=== PATIENT | male | born 1945 | race Caucasian/White ===

== ENCOUNTER 2020-11-10 11:59 | Day surgery (SDC) | payer OTHER ==
[2020-11-03 12:09] LABS: BASOPHILS # (AUTO) 0.1 X10'3 (0-0.2); BASOPHILS % (AUTO) 0.6 % (0-1); EOSINOPHILS # (AUTO) 0.1 X10'3 (0-0.9); EOSINOPHILS % (AUTO) 0.6 % (0-6); LYMPHOCYTES # (AUTO) 2.2 X10'3 (1.1-4.8); LYMPHOCYTES % (AUTO) 21.1 % (21-51); MEAN CORPUSCULAR HEMOGLOBIN 30.8 PG (27.0-31.0); MEAN CORPUSCULAR HGB CONC 33.4 g/dL (33.0-36.5); MEAN CORPUSCULAR VOLUME 92.1 FL (78-98); MEAN PLATELET VOLUME 7.6 FL (7.4-10.4); MONOCYTES # (AUTO) 0.6 X10'3 (0-0.9); MONOCYTES % (AUTO) 6.1 % (2-12); NEUTROPHILS # (AUTO) 7.4 X10'3 (1.8-7.7); NEUTROPHILS % (AUTO) 71.6 % (42-75); PRE OP HEMATOCRIT 45.1 % (42.0-52.0); PRE OP HEMOGLOBIN 15.1 g/dL (14.0-17.9); PRE OP PLATELET COUNT 251 X10'3 (140-440); RED CELL DISTRIBUTION WIDTH 13.7 % (11.5-14.5)
[2020-11-03 12:18] LABS: ALBUMIN 3.9 G/DL (3.4-5.0); ALKALINE PHOSPHATASE 72 IU/L (46-116); CALCIUM 9.1 MG/DL (8.5-10.1); CHLORIDE 104 MMOL/L (99-107); PRE OP ALT 21 U/L (30-65); PRE OP ANION GAP 12 (8-16); PRE OP AST 13 U/L (10-37); PRE OP BILIRUB, TOTAL 0.6 MG/DL (0.0-1.0); PRE OP GLUCOSE 113 MG/DL (70-104); PRE OP POTASSIUM 4.4 MMOL/L (3.4-5.1); PRE OP SODIUM 143 MMOL/L (135-145); TOTAL CARBON DIOXIDE 27.2 MMOL/L (24-32); TOTAL PROTEIN 7.9 G/DL (6.4-8.2)
[2020-11-03 12:28] LABS: BLOOD UREA NITROGEN 5 MG/DL (7-18); BUN/CREATININE RATIO 5.7 (5.4-32.0); CREATININE 0.88 MG/DL (0.60-1.10); eGFR 85 ML/MIN
[~2020-11-10] VITALS: Ht 182.9 cm; Wt 77.0 kg
[2020-11-10] VITALS (15 sets, daily range): BP systolic 105–132; BP diastolic 55–83
[~2020-11-10 11:59] MED LIST: FLO0.4C PO; MULT-1085 PO; OMEP20CA15 PO; TRAZ-251 PO; cefazolin/dext.iso 2gm/100ml IV ONE; famotidine 20mg tablet PO ONE; ringers solution, lacted 1,000 ML IV SCH
[2020-11-10] MEDS ORDERED: meperidine/PF 25mg/ml syringe IV PRN ×3 (14:00)
[2020-11-10] MEDS ORDERED: morphine 2 MG/ML inj. syringe IV PRN (14:00)
[2020-11-10] MEDS ORDERED: ondansetron/PF 4mg/2ml inj IV PRN (14:00)
[2020-11-10] MEDS ORDERED: ringers solution, lacted 1,000 ML IV SCH (14:00)
[2020-11-10] MEDS ORDERED: morphine 4 MG/ML inj SYRINge IV PRN (14:00)
[2020-11-10] MEDS ORDERED: proCHLORperazine 10 MG/2 ml inj IV PRN (14:00)
[2020-11-10] MEDS ORDERED: BUPIVAcaine/PF 2.5mg/ml (0.25%) 10ml vial ONE (15:24)
[2020-11-10] MEDS ORDERED: LIDOcaine 1% 30ml preserv. free vial ONE (15:24)
[2020-11-10] MEDS ORDERED: dexamethasone sod phosphate 10mg/ml inj ONE (15:30)
[2020-11-10] MEDS ORDERED: neostigmine methylsulfate 1 MG/ML 10ml vial ONE (15:30)
[2020-11-10] MEDS ORDERED: glycopyrrolate 0.2mg/ml inj ONE (15:30)
[2020-11-10] MEDS ORDERED: sevoflurane 250ml liquid IH ONE (15:30)
[2020-11-10] MEDS ORDERED: propofol inj 20 ML IV ONE (15:40)
[2020-11-10] MEDS ORDERED: rocuronium 10mg/ml inj IV ONE (15:40)
[2020-11-10] MEDS ORDERED: LIDOcaine 2% (20mg/ml) 5ml vial ONE (15:40)
[2020-11-10] MEDS ORDERED: fentaNYL /PF 50mcg/ml 5ml ampule ONE (15:40)
[2020-11-10] MEDS ORDERED: midazolam 1 mg/ML 2ml injection ONE (15:40)
[2020-11-10] MEDS ORDERED: ondansetron/PF 4mg/2ml inj ONE (15:51)
[2020-11-10] MEDS ORDERED: acetaminophen 1,000mg/100ml IV 100 ML IV ONE (17:07)
[2020-11-10] MEDS ORDERED: HYDROcodone/acetaminophen 5mg/325mg tablet PO PRN ×2 (17:10)
--- NOTE | 2020-11-10 17:13 | NUR ---
ASSUME CARE PT AWAKE, VSS NO DISTRESS. LAP SITES TO ABD CDI, NO DRAINAGE, DENIES PAIN, IV TO RFA 20G INTACT. CONT TO MONITOR Addendum: 11/10/20 at 1748 by Elayne Zamarripa RN Amended: Links added.
--- NOTE | 2020-11-10 18:29 | NUR ---
PT SITTING UP IN BED STATES HAVING ABD SURGICAL SITE PAIN, MED WITH NORCO 5MG X1 PILL JAY PO'S VSS URINAL PROVIDED INSTR PT NEEDS TO VOID PRIOR TO GOING HOME. CONT TO MONITOR Addendum: 11/10/20 at 1832 by Elayne Zamarripa RN Amended: Links added.
--- NOTE | 2020-11-10 19:15 | NUR ---
ASSIST PT TO BATHROOM, PT AWAKE ALERT VSS NO DISTRESS, ATTEMPTED TO VOID UNABLE ASSIST BACK TO BED CONT TO MONITOR. DC INSTR GIVEN NO ?'S OR CONCERNS. ONCE VOID MEETS CRITERIA TO DC HOME. Addendum: 11/10/20 at 1935 by Elayne Zamarripa RN Amended: Links added.
--- NOTE | 2020-11-10 20:30 | NUR ---
PT ATTEMPTED TO VOID X3 UNABLE TO BLADDER SCANNED GREATER THAN 300ML URINE. BRIGGS CATH PLACED WITH LEG BAG AND INSTR GIVEN TO PT HOW TO EMPTY AND TO FOLLOW UP WITH DR POLLARD OFFICE ON THUR TO HAVE BRIGGS REMOVED. PT VOICE UNDERSTANDING. CLEAR TO DC HOME. Addendum: 11/10/20 at 2047 by Elayne Zamarripa RN Amended: Links added.
== END 2020-11-10 21:07 | disposition home or self-care (01) ==
LOC: PAS 11:59
PROVIDERS: ATTEND Surgery
DX: K40.90 Unilateral inguinal hernia, without obstruction or gangrene, not specified as recurrent (principal); K42.0 Umbilical hernia with obstruction, without gangrene; K21.9 Gastro-esophageal reflux disease without esophagitis; N40.0 Benign prostatic hyperplasia without lower urinary tract symptoms; M19.90 Unspecified osteoarthritis, unspecified site; Z79.899 Other long term (current) drug therapy; Z87.891 Personal history of nicotine dependence; Z72.89 Other problems related to lifestyle; F12.90 Cannabis use, unspecified, uncomplicated; Z96.651 Presence of right artificial knee joint
CPT/HCPCS: 36415; 49587; 49650; 80053; 82948; 85025; 93005; C1781; J0131; J1100; J2001; J2175; J2250; J2405; J2704; J2710; J3010; J3490; Z7506; Z7508; Z7512; A4215; A4618; J7120